=== PATIENT | male | born 1980 | race Hispanic/Latino ===

== ENCOUNTER 2018-02-26 11:29 | Emergency (ER) | payer OTHER ==
[2018-02-26 11:48] VITALS: RESP 16; TEMP 98.3
[2018-02-26] MEDS ORDERED: Sodium Chloride 0.9% 1,000 ML IV STA (13:03)
--- NOTE | 2018-02-26 13:05 | ED PDOC ---
HPI: Abdomen Time Seen by Provider: 02/26/18 13:03 Chief Complaint (Nursing): Abdominal Pain Chief Complaint (Provider): right side abd pain History Per: Patient (37 y/ male here for evaluation of intermittent abdominal pain right sided improved with BM. Denies any fevers/chills/vomiting/diarrhea/ urinary frequency/hematuria/ dysuria. No h/o abd sx. ) Past Medical History Reviewed: Historical Data, Nursing Documentation, Vital Signs Vital Signs: Last Vital Signs Temp 98.3 F 02/26/18 11:46 Pulse 58 L 02/26/18 11:46 Resp 16 02/26/18 11:46 BP 160/101 H 02/26/18 11:46 Pulse Ox 100 02/26/18 13:05 - Family History Family History: States: No Known Family Hx - Home Medications Home Medications: Ambulatory Orders Medication Instructions Recorded Ciprofloxacin HCl [Cipro] 500 mg PO BID #14 tablet 02/26/18 Naproxen 375 mg PO Q12 PRN #14 tablet 02/26/18 - Allergies Allergies/Adverse Reactions: Allergies Allergy/AdvReac Type Severity Reaction Status Date / Time Sulfa (Sulfonamide Allergy RASH Verified 02/26/18 11:48 Antibiotics) Review of Systems ROS Statement: Except As Marked, All Systems Reviewed And Found Negative Gastrointestinal: Positive for: Abdominal Pain Physical Exam - Reviewed Nursing Documentation Reviewed: Yes Vital Signs Reviewed: Yes - Physical Exam Appears: Positive for: Well, Non-toxic, No Acute Distress Head Exam: Positive for: ATRAUMATIC, NORMAL INSPECTION, NORMOCEPHALIC Skin: Positive for: Normal Color, Warm, DRY Eye Exam: Positive for: EOMI, Normal appearance, PERRL ENT: Positive for: Normal ENT Inspection Neck: Positive for: Normal, Painless ROM Cardiovascular/Chest: Positive for: Regular Rate, Rhythm Respiratory: Positive for: CNT, Normal Breath Sounds Gastrointestinal/Abdominal: Positive for: Normal Exam, Soft, Tenderness (right flank tenderness; No CVA tenderness) Back: Positive for: Normal Inspection Extremity: Positive for: Normal ROM Neurologic/Psych: Positive for: Alert, Oriented - Laboratory Results Result Diagrams: 02/26/18 14:09 02/26/18 14:09 - ECG O2 Sat by Pulse Oximetry: 100 - Progress ED Course And Treament: PATIENT REFUSED IV/TORADOL STATES PAIN IS IMPROVED. CT ABD/PELVIS: IMPRESSION: An expelled calculus measures 3 mm at the dependent urinary bladder base with residual right hydroureter and periureteral reaction evident. Limited residual obstructive uropathy is seen at the right kidney as well. No additional radiodense urolithiasis. Left kidney appears unremarkable. Disposition - Clinical Impression Clinical Impression: Renal colic on right side - Patient ED Disposition Is Patient to be Admitted: No - Disposition Referrals: Qamar Andres MD [Staff Provider] - Disposition: Routine/Home Disposition Time: 14:54 Condition: FAIR Prescriptions: Ciprofloxacin HCl [Cipro] 500 mg PO BID #14 tablet Naproxen 375 mg PO Q12 PRN #14 tablet PRN Reason: Pain, Moderate (4-7) Instructions: Renal Colic (DC) Forms: [facility] (Syrian), [facility] ED School/Work Excuse
--- NOTE | 2018-02-26 13:55 | CT ---
PROCEDURE: CT Abdomen and Pelvis without intravenous contrast HISTORY: r/o kidney stone COMPARISON: None. TECHNIQUE: Helical CT of the abdomen and pelvis was performed without oral or intravenous contrast as per referring physician request. Contrast Dose: None Radiation dose: Total exam DLP = Total exam DLP = 864.64 mGy-cm. This CT exam was performed using one or more of the following dose reduction techniques: Automated exposure control, adjustment of the mA and/or kV according to patient size, and/or use of iterative reconstruction technique. FINDINGS: LOWER THORAX: Unremarkable. LIVER: Unremarkable. No gross lesion or ductal dilatation. GALLBLADDER AND BILE DUCTS: Unremarkable. PANCREAS: Unremarkable. No gross lesion or ductal dilatation. SPLEEN: Unremarkable. ADRENALS: Unremarkable. No mass. KIDNEYS AND URETERS: Limited residual obstructive uropathy seen the right kidney although perinephric reaction is evident. The left kidney is unremarkable appearing. No radiodense urolithiasis is identified bilaterally. Mild right hydroureter is appreciate diffusely with periureteral reaction. This is due to a 3 mm calculus identified at the dependent urinary bladder midline. The left ureter is normal. No additional radiodense urolithiasis. Urinary bladder is only minimally distended. VASCULATURE: Unremarkable. No aortic aneurysm. BOWEL: Unremarkable. No obstruction. No gross mural thickening. APPENDIX: Unremarkable. Normal appendix. PERITONEUM: Unremarkable. No free fluid. No free air. LYMPH NODES: Unremarkable. No enlarged lymph nodes. BLADDER: As above. REPRODUCTIVE: Unremarkable. BONES: No acute fracture. OTHER FINDINGS: None. IMPRESSION: An expelled calculus measures 3 mm at the dependent urinary bladder base with residual right hydroureter and periureteral reaction evident. Limited residual obstructive uropathy is seen at the right kidney as well. No additional radiodense urolithiasis. Left kidney appears unremarkable.
[2018-02-26 14:22] LABS: BASO # 0.1 K/uL (0.0-0.2); BASO % 0.5 % (0.0-2.0); EOS # 0.1 K/uL (0.0-0.7); EOS % 0.7 % (0.0-4.0); HEMOGLOBIN 14.5 g/dL (12.0-18.0); LYMPH # 1.5 K/uL (1.0-4.3); LYMPH % 14.2 % (20.0-40.0); MEAN CELL VOLUME 90.3 fl (80.0-94.0); MEAN CORPUSCULAR HEMOGLOBIN 30.8 pg (27.0-31.0); MEAN CORPUSCULAR HGB CONC 34.1 g/dL (33.0-37.0); MEAN PLATELET VOLUME 9.3 fl (7.2-11.7); MONO # 0.6 K/uL (0.0-0.8); NEUT # 8.2 K/uL (1.8-7.0); NEUT % 78.6 % (50.0-75.0); NRBC % 0.1 % (0.0-0.0); RBC 4.71 Mil/uL (4.40-5.90); RED CELL DISTRIBUTION WIDTH 14.2 % (11.5-14.5); WHITE BLOOD COUNT 10.4 K/uL (4.8-10.8)
[2018-02-26 14:34] LABS: URINE BILIRUBIN NEGATIVE (NEGATIVE); URINE BLOOD LARGE (NEGATIVE); URINE CLARITY CLEAR (Clear); URINE COLOR STRAW (YELLOW); URINE GLUCOSE (UA) NEG (Normal); URINE HYALINE CAST 0-2 /hpf (0-2); URINE LEUKOCYTE ESTERASE NEG Leu/uL (Negative); URINE PROTEIN NEGATIVE (NEGATIVE); URINE UROBILINOGEN 0.2-1.0 mg/dL (0.2-1.0)
[2018-02-26 14:36] LABS: ALB/GLOB RATIO 1.1 (1.0-2.1); ALBUMIN 4.2 g/dL (3.5-5.0); ALT/SGPT 43 U/L (21-72); AST/SGOT 22 U/L (17-59); BLOOD UREA NITROGEN 20 mg/dl (9-20); CALCIUM 9.8 mg/dL (8.4-10.2); GFR AFRICAN-AMERICAN > 60; GFR NON-AFRICAN AMERICAN > 60; LIPASE 157 U/L (23-300)
[2018-02-26 15:24] VITALS: BP 145/88; PULSE 78; O2SAT 99
== END 2018-02-26 15:24 | disposition home or self-care (01) ==
LOC: H.ER 11:29
DX: N23 Unspecified renal colic (principal)